=== PATIENT | male | born 1990 | race African-American/Black ===

== ENCOUNTER 2019-12-14 21:11 | Emergency (ER) | payer OTHER ==
[2019-12-14 21:17] VITALS: BP 113/71; PULSE 60; TEMP 98; BMI 25.1
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
== END 2019-12-14 22:35 | disposition left against medical advice (07) ==
LOC: JER 21:11
DX: M54.5 Low back pain (principal)
CPT/HCPCS: 99282-25

== ENCOUNTER 2020-04-14 12:51 | Emergency (ER) | payer OTHER ==
[2020-04-14 13:13] VITALS: BP 121/87; PULSE 69; TEMP 98.2; BMI 23.7
== END 2020-04-14 14:48 | disposition home or self-care (01) ==
LOC: JER 12:51
DX: J06.9 Acute upper respiratory infection, unspecified (principal); Z11.52 Encounter for screening for COVID-19
CPT/HCPCS: 71046-TC-FY; 87426; 99284-25

== ENCOUNTER 2020-05-05 22:36 | Emergency (ER) | payer OTHER ==
[2020-05-05 22:43] VITALS: BP 142/89; PULSE 82; TEMP 98.9; BMI 21.7
== END 2020-05-06 01:04 | disposition home or self-care (01) ==
LOC: JER 22:36
DX: U07.1 COVID-19 (principal); J20.8 Acute bronchitis due to other specified organisms
CPT/HCPCS: 71046-TC-FY; 99284-25

== ENCOUNTER 2020-05-12 06:06 | Emergency (ER) | payer OTHER ==
[2020-05-12 06:37] VITALS: TEMP 98.4; BMI 22.2
[2020-05-12] MEDS ORDERED: predniSONE 20 MG TABLET (UD) PO ONE (07:39)
[2020-05-12] MEDS ORDERED: ALBUTEROL SO4 2.5/IPRATROPIUM 0.5 INH SOL 3 ML VIAL.NEB. NEB ONE ×2 (07:39→08:47)
[2020-05-12] MEDS ORDERED: predniSONE 20 MG TABLET (UD) ONE (08:47)
[2020-05-12 10:36] LABS: BASO % 1.3 % (0-2.0); EOS % 16.4 % (0-4.5); HEMATOCRIT 41.8 % (35.4-49); HEMOGLOBIN 14.9 GM/dL (11.7-16.9); LYMPH % 40.8 % (8-40); MCH 30.9 pg (25.7-33.7); MCHC 35.6 g/dl (32.0-35.9); MEAN CELL VOLUME 86.6 fl (80-96); MEAN PLT VOLUME 9.6 fl (7.5-11.1); MONO % 7.2 % (3.8-10.2); NEUT % 34.3 % (42.8-82.8); PLATELET COUNT 150 K/MM3 (134-434); RBC 4.82 M/mm3 (4.00-5.60); RDW 13.5 % (11.9-15.9); WHITE BLOOD COUNT 6.8 K/mm3 (4.0-10.0)
[2020-05-12 10:49] LABS: INR 1.16 (0.83-1.09)
[2020-05-12 10:52] LABS: ACTIVATED PTT 30.4 SECONDS (25.2-36.5)
[2020-05-12 11:07] LABS: POTASSIUM 4.6 mmol/L (3.5-5.1)
[2020-05-12 11:09] LABS: BLOOD UREA NITROGEN 18.3 mg/dL (7-18); CALCIUM 8.7 mg/dL (8.5-10.1)
[2020-05-12 11:10] LABS: ALBUMIN 3.8 g/dl (3.4-5.0)
[2020-05-12 11:13] LABS: CREATININE 1.1 mg/dL (0.55-1.3)
[2020-05-12 11:14] LABS: BILIRUBIN,TOTAL 0.6 mg/dL (0.2-1); TOT PROT 7.4 g/dl (6.4-8.2)
[2020-05-12 12:00] VITALS: BP 135/74; PULSE 79
== END 2020-05-12 11:57 | disposition home or self-care (01) ==
LOC: JER 06:06
PROC: 3E0F7GC Introduction of Other Therapeutic Substance into Respiratory Tract, Via Natural or Artificial Opening (ICD-10-PCS; principal; 2020-05-12)
DX: R06.02 Shortness of breath (principal); R06.2 Wheezing
CPT/HCPCS: 36415; 71045-TC-FY; 80053; 82550; 82553; 83880; 84484; 85025; 85379; 85610; 85730; 87804; 99284-25

== ENCOUNTER 2023-02-19 09:35 | Emergency (ER) | payer OTHER ==
[2023-02-19 09:43] VITALS: TEMP 98.4; BMI 25.7
[2023-02-19] MEDS ORDERED: FAMOTIDINE 20 MG/50 ML IVPB 20 MG/50 ML MG IVPB ONE ×2 (10:31→10:39)
[2023-02-19] MEDS ORDERED: SODIUM CHLORIDE 0.9% 500 ML INFUS.BAG IV ONE (10:31)
[2023-02-19 11:15] LABS: PH,URINE 5.5 (5.0-8.0); URINE APPEARANCE CLEAR; URINE BILIRUBIN NEGATIVE (NEGATIVE); URINE COLOR YELLOW; URINE GLUCOSE (UA) NEGATIVE (NEGATIVE); URINE KETONE NEGATIVE (NEGATIVE); URINE LEUK ESTERASE NEGATIVE (NEGATIVE); URINE NITRITE NEGATIVE (NEGATIVE); URINE PROTEIN NEGATIVE (NEGATIVE); URINE UROBILINOGEN 0.2 mg/dL (0.2-1.0)
[2023-02-19 11:31] LABS: POTASSIUM 4.1 mmol/L (3.5-5.1)
[2023-02-19 11:33] LABS: BLOOD UREA NITROGEN 6.8 mg/dL (7-18); CALCIUM 8.9 mg/dL (8.5-10.1)
[2023-02-19 11:34] LABS: ALBUMIN 4.2 g/dl (3.4-5.0)
[2023-02-19 11:36] LABS: CREATININE 1.2 mg/dL (0.55-1.3)
[2023-02-19 11:38] LABS: BILIRUBIN,TOTAL 0.7 mg/dL (0.2-1); TOT PROT 7.9 g/dl (6.4-8.2)
[2023-02-19 11:49] LABS: BASO % 0.5 % (0-2.0); EOS % 4.1 % (0-4.5); HEMATOCRIT 45.1 % (35.4-49); HEMOGLOBIN 15.7 GM/dL (11.7-16.9); LYMPH % 25.5 % (8-40); MCH 29.8 pg (25.7-33.7); MCHC 34.9 g/dl (32.0-35.9); MEAN CELL VOLUME 85.4 fl (80-96); MEAN PLT VOLUME 9.4 fl (7.5-11.1); NEUT % 60.9 % (42.8-82.8); PLATELET COUNT 139 10^3/uL (134-434); RBC 5.28 M/mm3 (4.00-5.60)
[2023-02-19 12:16] VITALS: BP 130/75; PULSE 76; RESP 16
== END 2023-02-19 12:49 | disposition home or self-care (01) ==
LOC: JER 09:35
PROC: 3E033GC Introduction of Other Therapeutic Substance into Peripheral Vein, Percutaneous Approach (ICD-10-PCS; principal; 2023-02-19)
DX: K52.9 Noninfective gastroenteritis and colitis, unspecified (principal); J31.0 Chronic rhinitis; R05.9 Cough, unspecified; R10.13 Epigastric pain; R19.7 Diarrhea, unspecified; R42 Dizziness and giddiness; R35.0 Frequency of micturition; R09.89 Other specified symptoms and signs involving the circulatory and respiratory systems
CPT/HCPCS: 36415; 80053; 81003; 83690; 85025; 87086; 99284-25

== ENCOUNTER 2023-03-20 16:02 | Emergency (ER) | payer OTHER ==
[2023-03-20 16:12] VITALS: BMI 22.6
[2023-03-20] MEDS ORDERED: SODIUM CHLORIDE 0.9% 500 ML INFUS.BAG IV ONE (19:04)
[2023-03-20] MEDS ORDERED: FAMOTIDINE 20 MG TABLET PO ONE (19:07)
[2023-03-20 20:05] LABS: HEMATOCRIT 44.2 % (35.4-49); HEMOGLOBIN 15.1 GM/dL (11.7-16.9); MCH 29.2 pg (25.7-33.7); MCHC 34.2 g/dl (32.0-35.9); MEAN CELL VOLUME 85.4 fl (80-96); MEAN PLT VOLUME 8.2 fl (7.5-11.1); PLATELET COUNT 127 10^3/uL (134-434); RBC 5.18 M/mm3 (4.00-5.60); RDW 14.2 % (11.9-15.9); WHITE BLOOD COUNT 3.5 K/mm3 (4.0-10.0)
[2023-03-20 20:18] LABS: POTASSIUM 4.5 mmol/L (3.5-5.1)
[2023-03-20 20:20] LABS: CALCIUM 9.1 mg/dL (8.5-10.1)
[2023-03-20 20:21] LABS: ALBUMIN 3.8 g/dl (3.4-5.0); BLOOD UREA NITROGEN 19.4 mg/dL (7-18)
[2023-03-20 20:24] LABS: CREATININE 1.1 mg/dL (0.55-1.3)
[2023-03-20 20:25] LABS: BILIRUBIN,TOTAL 0.8 mg/dL (0.2-1); TOT PROT 7.5 g/dl (6.4-8.2)
[2023-03-20 21:40] LABS: ANISOCYTOSIS 1+; MACROCYTOSIS 1+; PLATELET ESTIMATE DECREASED; TARGET CELLS 1+
[2023-03-20 23:26] VITALS: RESP 18; TEMP 98.2
== END 2023-03-20 22:58 | disposition home or self-care (01) ==
LOC: JER 16:02
DX: R19.7 Diarrhea, unspecified (principal)
CPT/HCPCS: 36415; 74177-TC; 80053; 83690; 85027; 99285-25; Q9967